=== PATIENT | female | born 2000 | race African-American/Black ===

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

== ENCOUNTER 2021-08-23 14:42 | Inpatient (IN) ==
[~2021-08-23 14:42] MED LIST: *HR* FentaNYL (PF) 100 MCG/2 ML VIAL ONE; Azithromycin 500 MG in 0.9 % Sodium Chloride 250 ML IVPB PRN; Bupivacaine-MPF 0.25% 10 ML VIAL ONE; EPHEDrine 50 MG/ML VIAL IVP PRN; Epidural Premix (fent/bupiv) 110 ML EP ONE; Epidural Premix (fent/bupiv) 110 ML EP SCH; Famotidine 20 MG/2 ML VIAL IVP PRN; Metoclopramide 10 MG/2 ML VIAL IVP PRN; Naloxone 0.4 MG/ML INJ IVP PRN; Ondansetron 4 MG/2 ML VIAL IVP PRN; Ringers Solution, Lactated 1,000 ML ONE
[2021-08-23] MEDS: Ringers Solution, Lactated 1,000 ML IVC SCH ×2 (14:51→15:05)
[2021-08-23 15:07] LABS: Basophils % 0.3 %; Eosinophils # 0.1 K/mcL (0.0-0.6); Eosinophils % 0.5 %; Hematocrit 36.4 % (35.3-44.9); Hemoglobin 12.2 g/dL (11.5-15.4); Immature Granulocytes % 0.5 % (0-4); Lymphocytes # 1.5 K/mcL (0.6-4.6); Lymphocytes % 13.3 %; Mean Corpuscular HGB Conc 33.5 g/dL (31.6-35.5); Mean Corpuscular Hemoglobin 32.4 pg (28.0-33.3); Mean Corpuscular Volume 96.8 fL (83.0-100.0); Mean Platelet Volume 11.9 fL (9.4-12.4); Monocytes # 0.5 K/mcL (0.0-1.3); Monocytes % 4.5 %; Neutrophils # 8.8 K/mcL (1.6-8.9); Platelet Count 180 K/mcL (140-400); Red Blood Count 3.76 M/mcL (3.82-4.97); Red Cell Distribution Width 12.5 % (11.5-14.5); Segmented Neutrophils % 80.9 %; White Blood Count 10.9 K/mcL (4.3-11.1)
[2021-08-23 15:17] LABS: Amphetamine Screen,Urine Negative ng/mL (Cutoff=1000); Barbiturate Screen,Urine Negative ng/mL (Cutoff=200); Benzodiazepines Screen,Urine Negative ng/mL (Cutoff=200); Cannabinoid Screen,Urine Negative ng/mL (Cutoff = 50); Cocaine Screen,Urine Negative ng/mL (Cutoff= 300); Opiate Screen,Urine Negative ng/mL (Cutoff=300); Phencyclidine Screen,Urine Negative ng/mL (Cutoff=25)
[2021-08-23] MEDS: Oxytocin 30 UNIT/503 ML BAG IVC SCH ×2 (16:45→17:15)
[2021-08-23] MEDS ORDERED: Methylergonovine 0.2 MG/ML AMPUL IM ONE ×2 (17:06→17:17)
[2021-08-23] MEDS ORDERED: Benzocaine/Menthol 56 GM AEROSOL SPRAY TP PRN (17:17)
[2021-08-23] MEDS ORDERED: Ondansetron ODT 4 MG TAB.RAPDIS SL PRN (17:17)
[2021-08-23] MEDS ORDERED: Rho Immune Globulin 1,500 UNIT SYRINGE IM PRN (17:17)
[2021-08-23] MEDS ORDERED: Measles/Mumps/Rubella Vacc 0.5 ML VIAL SQ PRN (17:17)
[2021-08-23] MEDS ORDERED: Lanolin 7 G OINT...G. TP PRN (17:17)
[2021-08-23 17:18] LABS: Alanine Aminotransferase 7 Units/L (7-52); Aspartate Amino Transferase 13 Units/L (13-39); BUN/Creatinine Ratio 16 (6-26); Blood Urea Nitrogen 11 mg/dL (6-20); Lactate Dehydrogenase 186 Units/L (140-271); Uric Acid 5.2 mg/dL (2.3-7.6); eGFR For African Americans > 60 (> 60); eGFR For Non-African Americans > 60 (> 60)
[2021-08-23 17:24] LABS: Creatinine,Urine 162 mg/dL; Protein/Creatinine Ratio,Urine 0.19 mg/mg (0.00-0.20)
[2021-08-23] MEDS: Acetaminophen 325 MG TABLET PO SCH (21:50)
[2021-08-23] MEDS: Ibuprofen 600 MG TABLET PO SCH (21:51)
[2021-08-24] MEDS: Ibuprofen 600 MG TABLET PO SCH (04:13)
[2021-08-24] MEDS: Acetaminophen 325 MG TABLET PO SCH (04:13)
[2021-08-24 05:35] LABS: Basophils % 0.3 %; Eosinophils # 0.1 K/mcL (0.0-0.6); Eosinophils % 0.9 %; Hematocrit 33.8 % (35.3-44.9); Immature Granulocytes % 0.6 % (0-4); Lymphocytes # 2.8 K/mcL (0.6-4.6); Lymphocytes % 24.1 %; Mean Corpuscular HGB Conc 32.5 g/dL (31.6-35.5); Mean Corpuscular Hemoglobin 31.9 pg (28.0-33.3); Mean Platelet Volume 11.8 fL (9.4-12.4); Monocytes # 0.8 K/mcL (0.0-1.3); Monocytes % 6.6 %; Neutrophils # 7.9 K/mcL (1.6-8.9); Platelet Count 173 K/mcL (140-400); Red Blood Count 3.45 M/mcL (3.82-4.97); Red Cell Distribution Width 12.6 % (11.5-14.5); Segmented Neutrophils % 67.5 %; White Blood Count 11.6 K/mcL (4.3-11.1)
[2021-08-24 06:05] VITALS: BP 118/75; TEMP 97.6; O2SAT 100
[2021-08-24] MEDS ORDERED: Prenatal Vit/FA 1 EACH TABLET PO SCH (09:00)
[2021-08-24 16:57] VITALS: PULSE 68
== END 2021-08-24 18:05 | disposition home or self-care (01) | DRG 560 ==
LOC: 1NENULAB → 1NENUOBS 20:11
PROVIDERS: ADMIT Advanced Practice Midwife; ATTEND Advanced Practice Midwife